=== PATIENT | female | born 1995 | race Caucasian/White ===

== ENCOUNTER 2016-12-15 15:30 | Emergency (ER) | payer MEDICAID, OTHER ==
[2016-12-15 15:47] VITALS: TEMP 98.3; O2SAT 96
--- NOTE | 2016-12-15 17:05 | ED.PDOC ---
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 Husain-OB and scheduled follow up next week. Timing/Duration: this afternoon Quality: other - none Onset Location: unknown Radiation: none Activites at Onset: none Prior abdominal problems: none Sexual intercourse history: single partner Improving Factors: nothing Worsening Factors: nothing Associated Symptoms: denies symptoms Allergies/Adverse Reactions: Allergies NO KNOWN ALLERGY Allergy (Verified 05/08/16 15:20) Home Medications: Ambulatory Orders NK [NK] 12/15/16 Review of Systems - Review of Systems Constitutional: States: no symptoms reported EENTM: States: no symptoms reported Respiratory: States: no symptoms reported Cardiology: States: no symptoms reported Gastrointestinal/Abdominal: States: no symptoms reported, other Genitourinary: States: no symptoms reported Musculoskeletal: States: no symptoms reported Skin: States: no symptoms reported Neurological: States: no symptoms reported Endocrine: States: no symptoms reported Past Medical History (General) - Patient Medical History Hx Seizures: No Hx Stroke: No Hx Dementia: No Hx Asthma: Yes - asthma Hx of COPD: No Hx Cardiac Disorders: No Hx Congestive Heart Failure: No Hx Pacemaker: No Hx Hypertension: No Hx Thyroid Disease: No Hx Diabetes: No Hx Gastroesophageal Reflux: No Hx Renal Disease: No Hx Cancer: No Hx of HIV: No Hx Hepatitis C: No Hx MRSA: No MRSA Source:: Wound Surgical History: no surgical history - Vaccination History Hx Tetanus, Diphtheria Vaccination: Yes Hx Influenza Vaccination: Yes Hx Pneumococcal Vaccination: No - Social History Hx Tobacco Use: No Hx Chewing Tobacco Use: No Hx Alcohol Use: No Hx Substance Use: No Hx Substance Use Treatment: No Hx Depression: No Hx Physical Abuse: No Hx Emotional Abuse: No Hx Suspected Abuse: No - Activities of Daily Living Patient Lives Alone: No - family - Female History Patient is a Female of Child Bearing Age (10 -59 yrs old): Yes Hx Last Menstrual Period: 03/07/16 Patient : Yes Expected Date of Delivery:: 12/29/16 Hx Gestational Age: 38 Family Medical History - Family History Father Family History: No Known Hx Family Hypertension: Yes Hx Family Diabetes: Yes Brother Age (years): 23 Hx Family Asthma: Yes Grandparents Name: Jarod Perez Hx Family Asthma: Yes Hx Family Congestive Heart Failure: Yes Hx Family Hypertension: Yes Hx Family Stroke: Yes Hx Cardiac Disease: Yes Hx Family Diabetes: Yes Hx Family Cancer: Yes Physical Exam - Physical Exam General Appearance: Alert, No apparent distress Eyes, Ears, Nose, Throat Exam: PERRL/EOMI, normal ENT inspection, TMs normal Neck: non-tender, full range of motion, supple Cardiovascular/Respiratory: regular rate, rhythm, no M/R/G, normal peripheral pulses, no JVD, normal breath sounds, no respiratory distress Gastrointestinal/Abdominal: normal bowel sounds, non tender, soft, other - gravid uterus,fundus Ht-39 cms, heart beat-150's Pelvic Exam: external exam normal, speculum exam normal, other - cervix closed, no fluid noted from cervical os but with thick whitish discharge Extremity: non-tender, normal inspection, no pedal edema, normal capillary refill Neurologic: alert, normal mood/affect, oriented x 3 Skin Exam: normal color, warm/dry Departure - Departure Clinical Impression: Vaginal discharge, with 38 completed weeks gestation Time of Disposition: 17:15 Disposition: Discharge to Home or Self Care Condition: Good Departure Forms: ED Discharge - Pt. Copy, Patient Portal Self Enrollment Instructions: DI for Vaginal Discharge, Common Discomforts and Bodily Changes During Home Medications: Ambulatory Orders NK [NK] 12/15/16 Additional Instructions: KEEP OB FOLLOW UP WITH DR. HUSAIN;RETURN TO EMERGENCY ROOM NEEDED
[2016-12-15 17:30] VITALS: BP 111/57
== END 2016-12-15 17:24 | disposition home or self-care (01) ==
LOC: ER 15:30
DX: O26.893 Other specified pregnancy related conditions, third trimester (principal); O99.513 Diseases of the respiratory system complicating pregnancy, third trimester; J45.909 Unspecified asthma, uncomplicated; Z3A.38 38 weeks gestation of pregnancy

== ENCOUNTER 2018-06-29 23:28 | Emergency (ER) | payer SELFPAY ==
[2018-06-29 23:44] VITALS: BP 113/73; TEMP 97.4
--- NOTE | 2018-06-29 23:54 | ED.PDOC ---
History of Present Illness - General Chief Complaint: Upper Extremity Injury Stated Complaint: pt injured her left arm Time Seen by Provider: 06/29/18 23:31 Source: patient Exam Limitations: no limitations - History of Present Illness Initial Comments: The patient is a 22-year-old female presenting to emergency room secondary to swelling over the middle aspect of her left fifth metacarpal. The patient got mad and hit something with the side of her hand. It hurt immediately and started to swell immediately. She is neurovascularly intact. Capillary refills within normal limits. No other injuries. Timing/Duration: momentarily Severity: moderate Improving Factors: immobilization Worsening Factors: movement Associated Symptoms: denies symptoms Allergies/Adverse Reactions: Allergies NO KNOWN ALLERGY Allergy (Verified 05/08/16 15:20) Home Medications: Ambulatory Orders NK [NK] 12/15/16 Review of Systems - Review of Systems Constitutional: States: no symptoms reported EENTM: States: no symptoms reported Respiratory: States: no symptoms reported Cardiology: States: no symptoms reported Gastrointestinal/Abdominal: States: no symptoms reported Genitourinary: States: no symptoms reported Musculoskeletal: States: see HPI Skin: States: see HPI Neurological: States: no symptoms reported Endocrine: States: no symptoms reported All other Systems: No Change from Baseline Past Medical History (General) - Patient Medical History Hx Seizures: No Hx Stroke: No Hx Dementia: No Hx Asthma: Yes - asthma Hx of COPD: No Hx Cardiac Disorders: No Hx Congestive Heart Failure: No Hx Pacemaker: No Hx Hypertension: No Hx Thyroid Disease: No Hx Diabetes: No Hx Gastroesophageal Reflux: No Hx Renal Disease: No Hx Cancer: No Hx of HIV: No Hx Hepatitis C: No Hx MRSA: No MRSA Source:: Wound Surgical History: no surgical history - Vaccination History Hx Tetanus, Diphtheria Vaccination: Yes Hx Influenza Vaccination: Yes Hx Pneumococcal Vaccination: No - Social History Hx Tobacco Use: No Hx Chewing Tobacco Use: No Hx Alcohol Use: No Hx Substance Use: No Hx Substance Use Treatment: No Hx Depression: No Hx Physical Abuse: No Hx Emotional Abuse: No Hx Suspected Abuse: No - Female History Hx Last Menstrual Period: 03/07/16 Patient : Yes Expected Date of Delivery:: 12/29/16 Hx Gestational Age: 38 Family Medical History - Family History Father Family History: No Known Hx Family Hypertension: Yes Hx Family Diabetes: Yes Brother Age (years): 23 Hx Family Asthma: Yes Grandparents Name: Jarod Perez Hx Family Asthma: Yes Hx Family Congestive Heart Failure: Yes Hx Family Hypertension: Yes Hx Family Stroke: Yes Hx Cardiac Disease: Yes Hx Family Diabetes: Yes Hx Family Cancer: Yes Physical Exam - Physical Exam General Appearance: Alert, Comfortable, No apparent distress Eye Exam: bilateral normal Ears, Nose, Throat: hearing grossly normal Neck: full range of motion Respiratory: no respiratory distress, no accessory muscle use Cardiovascular/Chest: normal peripheral pulses, no edema Peripheral Pulses: radial,right: 2+, radial,left: 2+ Rectal Exam: deferred Extremity: normal range of motion, normal capillary refill, swelling - see history of present illness Neurologic: 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 X-ray shows no evidence of fracture or dislocation. This simply appears to be a hematoma. An Hakan wrap with some additional pressure was applied. She will have more extensive bruising in the days to come. She does need to do range of motion with the hand. [id number] Tylenol and ibuprofen should be sufficient for pain. ER warnings were given. Departure - Departure Clinical Impression: Traumatic hematoma of hand Qualifiers: Encounter type: initial encounter Laterality: left Qualified Code(s): S60.222A - Contusion of left hand, initial encounter Disposition: Discharge to Home or Self Care Condition: Fair Departure Forms: ED Discharge - Pt. Copy, Patient Portal Self Enrollment Diet: regular diet Activity: increase activity as tolerated Referrals: Armaan Husain MD [Primary Care Provider] - 1-2 Weeks Home Medications: Ambulatory Orders NK [NK] 12/15/16 Additional Instructions: the patient is a 22-year-old female presenting to the emergency room secondary to swelling and pain over the fifth metacarpal of the left hand after she hit an object. X-ray shows no evidence of fracture or dislocation. This simply appears to be a hematoma. An Hakan wrap with some additional pressure was applied. She will have more extensive bruising in the days to come. She does need to do range of motion with the hand. [id number] Tylenol and ibuprofen should be sufficient for pain. ER warnings were given.
--- NOTE | 2018-06-29 23:55 | RAD ---
EXAM: Three view(s) of the left hand. INDICATION: Pain. COMPARISON: None. FINDINGS: No acute fracture or dislocation. No large soft tissue swelling. IMPRESSION: 1. No acute fracture. Electronically signed by: Ta Garay MD 06/29/2018 11:54 PM CDT Workstation: [id number]
[2018-06-30 00:06] VITALS: O2SAT 99
== END 2018-06-30 00:06 | disposition home or self-care (01) ==
LOC: ER 23:28
DX: S60.222A Contusion of left hand, initial encounter (principal); J45.909 Unspecified asthma, uncomplicated; W22.8XXA Striking against or struck by other objects, initial encounter; Y92.9 Unspecified place or not applicable